=== PATIENT | male | born 1985 | race Caucasian/White ===

== ENCOUNTER 2017-05-25 03:10 | Emergency (ER) | payer MEDICAID ==
[~2017-05-25] VITALS: Ht 182.9 cm; Wt 68.0 kg
[2017-05-25 03:14] VITALS: BP_SYST 135
--- NOTE | 2017-05-25 03:14 | NUR ---
Placed in room 08. To gown for exam. Side rails up. Report given to ULISES Isaacs.
--- NOTE | 2017-05-25 03:15 | NUR ---
Patient AAO X4, sitting in bed c/o of Left ankle pain. Patient unsure of nature of injury states "I don't know I think I stepped on it wrong or tripped or something". Denies hit to head. Denies shortness of breath. Patient has history of meth use. Refused ice pack at this time. No acute distress noted. Will continue to monitor.
--- NOTE | 2017-05-25 03:20 | NUR ---
ER at bedside examining patient.
[2017-05-25 03:55] VITALS: BP_SYST 130
--- NOTE | 2017-05-25 03:55 | NUR ---
Patient not given written and verbal discharge instructions and verbalizes understanding. Patient rushed out of room after given crutches and after return demonstration. Patient left without discharge papers. ER MD discussed with patient the results and treatment provided. Patient was in stable condition.
== END 2017-05-25 03:55 | disposition home or self-care (01) ==
LOC: SED 03:10
DX: S93.402A Sprain of unspecified ligament of left ankle, initial encounter (principal); F25.9 Schizoaffective disorder, unspecified; F15.10 Other stimulant abuse, uncomplicated; F17.200 Nicotine dependence, unspecified, uncomplicated; Z88.8 Allergy status to other drugs, medicaments and biological substances; W22.8XXA Striking against or struck by other objects, initial encounter; Y93.01 Activity, walking, marching and hiking; Y92.89 Other specified places as the place of occurrence of the external cause; Y99.8 Other external cause status
CPT/HCPCS: 99284

== ENCOUNTER 2020-02-01 14:30 | Emergency (ER) | payer BC, MEDICAID ==
[~2020-02-01] VITALS: Ht 185.4 cm; Wt 79.4 kg
[2020-02-01 14:30] VITALS: BP_SYST 128
--- NOTE | 2020-02-01 15:49 | NUR ---
BROUGHT BACK TO BED #6 AND REPORT GIVEN TO DILSHAD
--- NOTE | 2020-02-01 16:00 | NUR ---
PT ARRIVES FROM HOME W/ C/O RIGHT SIDED CHEST WALL PAIN. PT BELIEVES THAT HE MAY HAVE BROKEN ONE OF HIS RIBS WILL FLIPPING ON A TRAMPOLINE. FURTHERMORE, PT WANTS TO BE TESTED FOR STDS. REPORTS 'NEW' SORES OVER THE GROIN AREA.
--- NOTE | 2020-02-01 16:05 | NUR ---
ER at bedside examining patient.
--- NOTE | 2020-02-01 16:10 | NUR ---
URINE COLLECTED AND SENT TO LAB
[2020-02-01] MEDS ORDERED: cefTRIAXone 250 MG in LIDOCAINE 1%, 20 ML MDV 0.9 ML IM ONE (17:00)
[2020-02-01] MEDS ORDERED: KETOROLAC TROMETHAMINE 60 MG/2 ML VIAL IM ONE (17:00)
[2020-02-01] MEDS ORDERED: AZITHROMYCIN 250 MG TABLET PO ONE (17:00)
--- NOTE | 2020-02-01 17:00 | NUR ---
Toradol, Rocephin, and Zithromax given per MD order
[2020-02-01 17:10] VITALS: BP_SYST 128
--- NOTE | 2020-02-01 17:10 | NUR ---
Patient given written and verbal discharge instructions and verbalizes understanding. ER MD discussed with patient the results and treatment provided. Patient in stable condition. ID arm band removed. Rx of Motrin and [place] given. Patient educated on pain management and to follow up with PMD. Pain Scale 3/10. Opportunity for questions provided and answered. Medication side effect fact sheet provided.
[2020-02-04 23:06] LABS: CHLAMYDIA TRACHOMATIS NAA Negative (Negative); NEISSERIA GONORRHOEAE NAA Negative (Negative)
== END 2020-02-01 17:10 | disposition home or self-care (01) ==
LOC: SED 14:30
DX: S20.211A Contusion of right front wall of thorax, initial encounter (principal); F15.10 Other stimulant abuse, uncomplicated; F17.200 Nicotine dependence, unspecified, uncomplicated; Z52.89 Donor of other specified organs or tissues; X50.1XXA Overexertion from prolonged static or awkward postures, initial encounter; Y93.89 Activity, other specified; Y92.89 Other specified places as the place of occurrence of the external cause; Y99.8 Other external cause status
CPT/HCPCS: 71045; 87491; 87591; 96372; 99284; J0696; J1885; J2001; Q0144

== ENCOUNTER 2020-07-13 20:16 | Emergency (ER) | payer BC ==
[~2020-07-13] VITALS: Ht 185.4 cm; Wt 86.2 kg
[2020-07-13 20:40] VITALS: BP_SYST 138
[2020-07-14 00:35] VITALS: BP_SYST 138
[2020-07-14 00:58] LABS: BASOPHILS % (AUTO) 0.3 % (0.0-2.0); EOSINOPHILS # (AUTO) 0.1 K/uL (0.0-0.4); EOSINOPHILS % (AUTO) 0.6 % (0.0-4.0); HEMATOCRIT 40.5 % (36-54); HEMOGLOBIN 13.5 g/dL (14.0-18.0); LYMPHOCYTES # (AUTO) 2.6 K/uL (1.0-5.5); LYMPHOCYTES % (AUTO) 30.2 % (20.5-51.5); MEAN CORPUSCULAR HEMOGLOBIN 30 pg (27-31); MEAN CORPUSCULAR HGB CONC 34 % (32-36); MEAN CORPUSCULAR VOLUME 91 fL (79.0-98.0); MONOCYTES # (AUTO) 0.6 K/uL (0.0-1.0); MONOCYTES % (AUTO) 6.9 % (1.7-9.3); NEUTROPHILS # (AUTO) 5.4 K/uL (1.8-7.7); PLATELET COUNT (AUTO) 271 K/uL (130-430); RED BLOOD CELL COUNT(AUTO) 4.45 MIL/uL (4.2-6.2); RED CELL DISTRIBUTION WIDTH 13.4 % (9.0-15.0); WHITE BLOOD COUNT (AUTO) 8.6 K/uL (4.8-10.8)
[2020-07-14 00:59] LABS: BILIRUBIN,URINE NEGATIVE (NEGATIVE); BLOOD, URINE NEGATIVE (NEGATIVE); CLARITY/URINE CLEAR (CLEAR); COLOR,URINE YELLOW (YELLOW); GLUCOSE,URINE NEGATIVE (NEGATIVE); KETONES,URINE NEGATIVE (NEGATIVE); LEUKOCYTE ESTERASE ,URINE NEGATIVE (NEGATIVE); NITRITE, URINE NEGATIVE (NEGATIVE); PROTEIN URINE NEGATIVE (NEGATIVE); UROBILINOGEN,URINE 0.2 (0.2-1.0)
[2020-07-14 01:06] LABS: BARBITURATE, URINE NEGATIVE (NEG <=200); BENZODIAZEPINE, URINE POSITIVE (NEG <=150); COCAINE, URINE NEGATIVE (NEG <=150); METHAMPHETAMINES SCREEN,URINE POSITIVE (NEG <=500); OPIATE, URINE NEGATIVE (NEG <=100); PHENCYCLIDINE SCREEN,URINE NEGATIVE (NEG <=25); UR TRICYCLIC ANTIDEPRESSANTS NEGATIVE (NEG <=300); URINE AMPHETAMINE POSITIVE (NEG <=500); URINE METHADONE NEGATIVE (NEG <=200); URINE OXYCODONE SCREEN NEGATIVE (NEG <=100); URINE PROPOXYPHENE SCREEN NEGATIVE (NEG <=300)
[2020-07-14 01:07] LABS: CANNABINOID, URINE POSITIVE (NEG <=50)
[2020-07-14 01:11] LABS: CALCIUM 8.5 mg/dL (8.4-11.0); CREATININE 0.8 mg/dL (0.55-1.30); POTASSIUM 3.5 mmol/L (3.5-5.1)
[2020-07-14 01:26] LABS: ALBUMIN 3.3 g/dL (3.4-4.8); TOTAL BILIRUBIN 0.2 mg/dL (0.0-1.0)
[2020-07-14 01:58] LABS: CKMB RELATIVE INDEX 0.8 (0.0-2.9); CREATINE KINASE MB 8.7 ng/mL (0-3.6)
== END 2020-07-14 00:35 | disposition left against medical advice (07) ==
LOC: SED 20:16
DX: R53.1 Weakness (principal); F15.10 Other stimulant abuse, uncomplicated; F17.210 Nicotine dependence, cigarettes, uncomplicated; Z88.6 Allergy status to analgesic agent
CPT/HCPCS: 36415; 71045; 80053; 80307; 81003; 82550; 82553; 85025; 99284; 99285

== ENCOUNTER 2021-04-07 23:32 | Emergency (ER) | payer BC, SELFPAY ==
[~2021-04-07] VITALS: Ht 185.4 cm; Wt 81.6 kg
[2021-04-07 23:40] VITALS: BP_SYST 112
--- NOTE | 2021-04-07 23:40 | NUR ---
Patient triaged and placed in waiting room. VSS and patient appears in no acute distress at this time., awaiting available bed, and MD notified of need for MSE.
--- NOTE | 2021-04-08 02:25 | NUR ---
ER examining patient in the triage room.
[2021-04-08] MEDS ORDERED: EMTRICITABINE 200 MG CAPSULE PO ONE (02:45)
[2021-04-08] MEDS ORDERED: TENOFOVIR DISOPROXIL FUMARATE 300 MG TABLET(VIREAD) PO ONE (02:45)
[2021-04-08] MEDS ORDERED: TENO300T8 PO (02:54)
[2021-04-08] MEDS ORDERED: EMTR200C4 PO (02:54)
--- NOTE | 2021-04-08 02:59 | NUR ---
Dr Soto notified medication not available.
--- NOTE | 2021-04-08 05:39 | NUR ---
Patient given written and verbal discharge instructions and verbalizes understanding. ER MD discussed with patient the results and treatment provided. Patient in stable condition. ID arm band removed. Rx of Emtriva and Tenofovir given. Patient educated on pain management and to follow up with PMD. Pain Scale 0/10. Opportunity for questions provided and answered. Medication side effect fact sheet provided.
[2021-04-08 05:43] VITALS: BP_SYST 112
[2021-04-09] MEDS ORDERED: EMTR1TAB12 PO (19:44)
== END 2021-04-08 05:39 | disposition home or self-care (01) ==
LOC: SED 23:32
DX: S61.231A Puncture wound without foreign body of left index finger without damage to nail, initial encounter (principal); Z88.8 Allergy status to other drugs, medicaments and biological substances; W46.1XXA Contact with contaminated hypodermic needle, initial encounter; Y93.89 Activity, other specified; Y92.89 Other specified places as the place of occurrence of the external cause; Y99.8 Other external cause status; Z53.21 Procedure and treatment not carried out due to patient leaving prior to being seen by health care provider
CPT/HCPCS: 99283

== ENCOUNTER 2023-02-20 01:23 | Emergency (ER) | payer BC ==
[~2023-02-20] VITALS: Ht 185.4 cm; Wt 83.9 kg
[~2023-02-20 01:23] MED LIST: EMTR1TAB12 PO
[2023-02-20 01:30] VITALS: BP_SYST 135; PULSE 95; RESP 19; TEMP 97.8; O2SAT 98
[2023-02-20] MEDS ORDERED: IBUPROFEN 600 MG TABLET PO ONE (01:45)
[2023-02-20] MEDS ORDERED: NAPR-690 PO (03:13)
== END 2023-02-20 03:30 | disposition home or self-care (01) ==
LOC: SED 01:23
DX: S80.11XA Contusion of right lower leg, initial encounter (principal); Z88.1 Allergy status to other antibiotic agents; Z79.899 Other long term (current) drug therapy; V29.00 Motorcycle driver injured in collision with unspecified motor vehicles in nontraffic accident; Y93.89 Activity, other specified; Y92.89 Other specified places as the place of occurrence of the external cause; Y99.8 Other external cause status
CPT/HCPCS: 73552; 73560-TC; 73590-TC; 99284

== ENCOUNTER 2023-04-12 23:39 | Emergency (ER) | payer BC, OTHER ==
[~2023-04-12] VITALS: Ht 185.4 cm; Wt 81.6 kg
[~2023-04-12 23:39] MED LIST changes: +NAPR-690 PO
[2023-04-13 00:03] VITALS: BP_SYST 138; PULSE 114; RESP 16; TEMP 97.7; O2SAT 98
[2023-04-13 00:45] VITALS: BP_SYST 138; PULSE 114; RESP 16; TEMP 97.7; O2SAT 98
== END 2023-04-13 02:06 | disposition home or self-care (01) ==
LOC: SED 23:39
DX: L42 Pityriasis rosea (principal); L29.9 Pruritus, unspecified; Z20.2 Contact with and (suspected) exposure to infections with a predominantly sexual mode of transmission; Z88.1 Allergy status to other antibiotic agents; Z88.8 Allergy status to other drugs, medicaments and biological substances; Z79.899 Other long term (current) drug therapy
CPT/HCPCS: 36415; 99283

== ENCOUNTER 2023-05-13 00:04 | Emergency (ER) | payer BC ==
[~2023-05-13] VITALS: Ht 185.4 cm; Wt 127.0 kg
[2023-05-13 00:22] VITALS: BP_SYST 124; PULSE 109; RESP 20; TEMP 97.3; O2SAT 96
[2023-05-13] MEDS ORDERED: KETO60CR2 TP (01:20)
[2023-05-13] MEDS: PENICILLIN G BENZATHINE 1.2 MMU/2 ML SYR IM ONE (01:39)
[2023-05-13 02:18] VITALS: BP_SYST 124; PULSE 92; RESP 18; TEMP 98.2; O2SAT 97
== END 2023-05-13 02:18 | disposition home or self-care (01) ==
LOC: SED 00:04
DX: B35.4 Tinea corporis (principal); R59.1 Generalized enlarged lymph nodes; R21 Rash and other nonspecific skin eruption; Z79.899 Other long term (current) drug therapy; Z88.8 Allergy status to other drugs, medicaments and biological substances
CPT/HCPCS: 99283; 86592; 36415; 96372; J0561